=== PATIENT | female | born 1965 | race Caucasian/White ===

== ENCOUNTER 2022-05-28 11:04 | Outpatient (CLI) | payer OTHER | END 2022-05-28 11:21 | disposition home or self-care (01) | LOC: MAMO-SONO 11:04 | PROVIDERS: ATTEND Chiropractor Rehabilitation | DX: M79.672 Pain in left foot (principal); E03.9 Hypothyroidism, unspecified; Z12.31 Encounter for screening mammogram for malignant neoplasm of breast ==